=== PATIENT | male | born 1990 | race Native Hawaiian/Other Pacific Islander ===

== ENCOUNTER 2020-03-10 09:43 | Outpatient (CLI) | payer OTHER ==
[2020-03-10 10:16] LABS: PLATELET COUNT 164 K/uL (142-355)
== END 2020-03-10 19:34 | disposition home or self-care (01) ==
LOC: LABW 09:43
PROVIDERS: Internal Medicine Gastroenterology
DX: B18.2 Chronic viral hepatitis C (principal)
CPT/HCPCS: 36415; 80076; 85027; 87522